=== PATIENT | male | born 1950 | race Caucasian/White ===

== ENCOUNTER 2025-01-20 15:43 | Emergency (ER) | payer OTHER ==
[~2025-01-20] VITALS: Ht 185.4 cm; Wt 72.6 kg
[2025-01-20] MEDS ORDERED: FLECAINIDE ACE100 MG PO (16:21)
[2025-01-20] MEDS ORDERED: KETOROLAC TROMETHAMINE 60 MG VIAL IM ONE (17:00)
[2025-01-20] MEDS ORDERED: KETOROLAC TROMETHAMINE 30 MG VIAL IM ONE (18:15)
[2025-01-20] MEDS ORDERED: MORPHINE SULFATE 2 MG/ML SYRINGE IV ONE (18:15)
[2025-01-20] MEDS ORDERED: KETOROLAC TROMETHAMINE 30 MG VIAL ONE (18:44)
[2025-01-20] MEDS ORDERED: PERCOCET 10-321 EACH PO (23:21)
[2025-01-20] MEDS ORDERED: TRAMADOL HCL 50 MG TABLET PO ONE (23:30)
== END 2025-01-21 00:24 | disposition home or self-care (01) ==
LOC: ER 15:44
DX: S42.212A Unspecified displaced fracture of surgical neck of left humerus, initial encounter for closed fracture (principal); W10.0XXA Fall (on)(from) escalator, initial encounter; Y93.89 Activity, other specified; Y92.89 Other specified places as the place of occurrence of the external cause; I49.8 Other specified cardiac arrhythmias; S79.812A Other specified injuries of left hip, initial encounter; S59.812A Other specified injuries left forearm, initial encounter; S42.392A Other fracture of shaft of left humerus, initial encounter for closed fracture
CPT/HCPCS: 71250; 72125; 73030; 73080; 73090; 73110; 73200; 73503; 74176; 96365; 96372; 99284; J1885; J2270

== ENCOUNTER 2025-01-24 07:02 | Outpatient (CLI) | payer OTHER ==
[~2025-01-24 07:02] MED LIST: FLECAINIDE ACE100 MG PO; PERCOCET 10-321 EACH PO
[2025-01-24 07:55] LABS: BASO % 0.3 % (0.1-1.2); EOS # 0.13 (0.04-0.54); EOS % 2.0 % (0.7-7.0); LYMPH # 0.56 (1.18-3.74); LYMPH % 8.5 % (19.3-53.1); MEAN PLATELET VOLUME 11.10 fl (9.4-12.4); MONO # 0.34 (0.24-0.82); MONO % 5.2 % (4.7-12.5); NEUT # 5.47 (1.56-6.13); NEUT % 83.5 % (34.0-71.1); RED CELL DISTRIBUTION WIDTH 14.5 % (11.6-14.4)
[2025-01-24 08:27] LABS: URINE APPEARANCE Clear; URINE BILIRRUBIN Small (NEGATIVE); URINE BLOOD Negative; URINE COLOR Dark Yellow; URINE GLUCOSE Negative (NEGATIVE); URINE KETONE Trace (NEGATIVE); URINE LEUKOCYTE Trace; URINE NITRATE Negative; URINE PROTEIN Trace (NEGATIVE); URINE UROBILINOGEN 1.0 E.U./dl
[2025-01-24 08:28] LABS: URINE BACTERIA 28.8 uL (0.0-1933); URINE EPITHELIAL CELLS 3.0 uL (0.0-38.8); URINE RBC 13.1 uL (0.0-20.8); URINE WBC 3.3 uL (0.0-23.2)
[2025-01-24 08:51] LABS: ALT/SGPT 29.0 U/L (12-78); AST/SGOT 21.0 U/L (15-37); BILIRUBIN TOTAL 0.67 mg/dL (0.3-1.2); BUN CREA RATIO 18.0 (7.0-25.0); CREATININE SERUM 0.82 mg/dL (0.70-1.30); GFR 91.84; GLOBULINA 2.8 G/DL (2.4-3.5); GLUCOSE FASTING 110.0 mg/dL (65-100); OSMOLALITY SERUM 283.0 MOSM/KG (275-295)
[2025-01-24 08:52] LABS: COL EPI 94 SECONDS (82-175)
[2025-01-24 08:58] LABS: INR 0.98
[2025-01-24 09:08] LABS: URINE CAST 0.14 uL (0.0-1.40)
[2025-01-24 09:10] LABS: URINE CRYSTALS MANY /HPF; URINE MUCUS HEAVY
== END 2025-01-24 07:10 | disposition home or self-care (01) ==
LOC: LAB 07:02 → RAD 07:02
PROVIDERS: ATTEND Orthopaedic Surgery
DX: D64.9 Anemia, unspecified (principal); E88.89 Other specified metabolic disorders; D68.8 Other specified coagulation defects; N39.0 Urinary tract infection, site not specified; Z22.322 Carrier or suspected carrier of Methicillin resistant Staphylococcus aureus; E11.9 Type 2 diabetes mellitus without complications; Z76.89 Persons encountering health services in other specified circumstances; I10 Essential (primary) hypertension

== ENCOUNTER 2025-01-28 08:34 | Outpatient (CLI) | payer OTHER ==
[2025-01-28 09:04] LABS: BASO % 0.5 % (0.1-1.2); EOS # 0.11 (0.04-0.54); EOS % 1.7 % (0.7-7.0); LYMPH # 0.69 (1.18-3.74); LYMPH % 10.8 % (19.3-53.1); MEAN PLATELET VOLUME 10.30 fl (9.4-12.4); MONO # 0.35 (0.24-0.82); MONO % 5.5 % (4.7-12.5); NEUT # 5.18 (1.56-6.13); NEUT % 80.9 % (34.0-71.1); RED CELL DISTRIBUTION WIDTH 14.3 % (11.6-14.4)
== END 2025-01-28 08:39 | disposition home or self-care (01) ==
LOC: LAB 08:34
PROVIDERS: ATTEND Internal Medicine
DX: D64.9 Anemia, unspecified (principal)

== ENCOUNTER 2025-01-31 22:07 | Inpatient (IN) | payer OTHER ==
[~2025-01-31] VITALS: Ht 185.4 cm; Wt 72.6 kg
[~2025-01-31 22:07] MED LIST changes: +ACETAMINOPHEN 325 MG TABLET PO SCH; +BUPIVACAINE HCL/MPF 0.5% 30ML VIAL ONE; +CEFAZOLIN SODIUM 1,000 MG VIAL ONE; +ONDANSETRON 4 MG TAB.RAPDIS PO PRN; +ONDANSETRON HCL 2 MG/ML VIAL IV PRN; +ONDANSETRON HCL 2 MG/ML VIAL ONE; +PROMETHAZINE HCL 50 MG/ML AMPUL IM PRN; +SODIUM CHLORIDE 0.45 % 1,000 ML IV SCH; +SUGAMMADEX SODIUM 200 MG/2 ML VIAL IV ONE; +TRAMADOL HCL 50 MG TABLET PO PRN; +TRANEXAMIC ACID 100MG/1ML (1000MG) AMPUL IV ONE
[2025-01-31 23:18] LABS: BASO % 0.1 % (0.1-1.2); EOS # 0.02 (0.04-0.54); EOS % 0.1 % (0.7-7.0); LYMPH # 0.41 (1.18-3.74); LYMPH % 2.4 % (19.3-53.1); MEAN PLATELET VOLUME 9.60 fl (9.4-12.4); MONO # 0.30 (0.24-0.82); MONO % 1.7 % (4.7-12.5); NEUT # 16.32 (1.56-6.13); NEUT % 95.2 % (34.0-71.1); RED CELL DISTRIBUTION WIDTH 14.5 % (11.6-14.4)
[2025-01-31] MEDS ORDERED: CEFAZOLIN SODIUM 1,000 MG VIAL ONE (23:44)
[2025-01-31] MEDS ORDERED: ACETAMINOPHEN 325 MG TABLET PO ONE (23:44)
[2025-02-01] MEDS ORDERED: CEFAZOLIN SODIUM 1,000 MG VIAL IV SCH (01:00)
[2025-02-01 01:05] LABS: LYMPHOCYTE MAN 5.0 %; MONOCYTE MAN 1.0 %; NEUTROPHILS MAN 94.0 %
[2025-02-01 01:30] VITALS: BP 145/68; O2SAT 97
[2025-02-01 08:48] VITALS: BP 153/73; O2SAT 98
[2025-02-01] MEDS ORDERED: PANTOPRAZOLE SODIUM 40 MG TABLET.DR PO SCH (09:00)
[2025-02-01] MEDS ORDERED: RIVAROXABAN 10 MG TAB PO SCH (09:00)
[2025-02-02] MEDS ORDERED: SENNA/DOCUSATE SODIUM 1 TAB TABLET PO SCH (09:00)
== END 2025-02-01 17:40 | disposition home or self-care (01) | DRG 493 ==
LOC: CIR.AMB 22:07 → SURG 22:16
PROVIDERS: ADMIT Orthopaedic Surgery; ATTEND Orthopaedic Surgery
PROC: 0PSD04Z Reposition Left Humeral Head with Internal Fixation Device, Open Approach (ICD-10-PCS; 2025-01-31)
PROC: 0LQ20ZZ Repair Left Shoulder Tendon, Open Approach (ICD-10-PCS; 2025-01-31)
PROC: 0LS40ZZ Reposition Left Upper Arm Tendon, Open Approach (ICD-10-PCS; 2025-01-31)
PROC: 0PBB0ZZ Excision of Left Clavicle, Open Approach (ICD-10-PCS; 2025-01-31)
PROC: 0PSD04Z Reposition Left Humeral Head with Internal Fixation Device, Open Approach (ICD-10-PCS; principal; 2025-01-31 08:15)
DX: S42.232A 3-part fracture of surgical neck of left humerus, initial encounter for closed fracture (principal); S42.392A Other fracture of shaft of left humerus, initial encounter for closed fracture; M75.102 Unspecified rotator cuff tear or rupture of left shoulder, not specified as traumatic

== ENCOUNTER 2025-02-10 07:19 | Outpatient (CLI) | payer OTHER ==
[~2025-02-10 07:19] MED LIST changes: -ACETAMINOPHEN 325 MG TABLET PO SCH; -BUPIVACAINE HCL/MPF 0.5% 30ML VIAL ONE; -CEFAZOLIN SODIUM 1,000 MG VIAL ONE; -ONDANSETRON 4 MG TAB.RAPDIS PO PRN; -ONDANSETRON HCL 2 MG/ML VIAL IV PRN; -ONDANSETRON HCL 2 MG/ML VIAL ONE; -PROMETHAZINE HCL 50 MG/ML AMPUL IM PRN; -SODIUM CHLORIDE 0.45 % 1,000 ML IV SCH; -SUGAMMADEX SODIUM 200 MG/2 ML VIAL IV ONE; -TRAMADOL HCL 50 MG TABLET PO PRN; -TRANEXAMIC ACID 100MG/1ML (1000MG) AMPUL IV ONE
== END 2025-02-10 07:23 | disposition home or self-care (01) ==
LOC: RAD 07:19
PROVIDERS: ATTEND Orthopaedic Surgery
DX: S52.572A Other intraarticular fracture of lower end of left radius, initial encounter for closed fracture (principal)

== ENCOUNTER 2025-02-10 12:30 | Inpatient (IN) | payer OTHER ==
[~2025-02-10] VITALS: Ht 185.4 cm; Wt 72.6 kg
[2025-02-10] MEDS ORDERED: CEFTRIAXONE SODIUM 2,000 MG VIAL IV STA (13:59)
[2025-02-10] MEDS ORDERED: ACETAMINOPHEN 500 MG GEL..CAP PO PRN (14:00)
[2025-02-10 14:13] VITALS: BP 146/81; O2SAT 99
[2025-02-10] MEDS ORDERED: ENALAPRILAT DIHYDRATE 2.5 MG/2 ML VIAL IV PRN (14:15)
[2025-02-10] MEDS ORDERED: ENALAPRILAT DIHYDRATE 1.25 MG/ML VIAL IV PRN (14:30)
[2025-02-10 15:53] LABS: BASO % 0.4 % (0.1-1.2); EOS # 0.11 (0.04-0.54); EOS % 1.4 % (0.7-7.0); LYMPH # 0.71 (1.18-3.74); LYMPH % 8.9 % (19.3-53.1); MEAN PLATELET VOLUME 9.50 fl (9.4-12.4); MONO # 0.29 (0.24-0.82); MONO % 3.6 % (4.7-12.5); NEUT # 6.77 (1.56-6.13); NEUT % 85.1 % (34.0-71.1); RED CELL DISTRIBUTION WIDTH 14.9 % (11.6-14.4)
[2025-02-10 16:00] VITALS: BP 146/87; O2SAT 99
[2025-02-10 16:09] LABS: ERYTHROCYTE SEDIMENTATION RATE 78 mm/hr (0-20)
[2025-02-10 16:14] LABS: INR 1.0
[2025-02-10 16:38] LABS: ALT/SGPT 24.0 U/L (12-78); AST/SGOT 18.0 U/L (15-37); BILIRUBIN TOTAL 0.68 mg/dL (0.3-1.2); BUN CREA RATIO 20.0 (7.0-25.0); CREATININE SERUM 0.82 mg/dL (0.70-1.30); GFR 91.84; GLOBULINA 3.8 G/DL (2.4-3.5); GLUCOSE FASTING 91.0 mg/dL (65-100); OSMOLALITY SERUM 282.0 MOSM/KG (275-295)
[2025-02-10] MEDS ORDERED: FF) FLECAINIDE ACETATE 50MG TAB PO SCH (17:03)
[2025-02-10] MEDS ORDERED: FAMOTIDINE/PF 20 MG/2 ML VIAL IV PUSH SCH (21:00)
[2025-02-11] VITALS: BP 163/74; O2SAT 100
[2025-02-11 08:07] VITALS: BP 116/79; O2SAT 97
[2025-02-11] MEDS ORDERED: CEFTRIAXONE SODIUM 2,000 MG VIAL IV SCH ×2 (09:00)
[2025-02-11] MEDS ORDERED: ENOXAPARIN SODIUM 40 MG/0.4 ML SYRINGE SUBCUTANEO SCH (09:00)
[2025-02-11 16:36] VITALS: BP 137/78; O2SAT 99
[2025-02-11] MEDS ORDERED: LACTOBACILLUS ACIDOPHILUS 1 CAP CAP PO SCH (17:00)
[2025-02-12 00:16] VITALS: BP 169/83; O2SAT 100
[2025-02-12 03:03] VITALS: BP 140/82; O2SAT 97
[2025-02-12 09:15] VITALS: BP 166/75; O2SAT 99
[2025-02-12 19:35] VITALS: BP 148/69; O2SAT 97
[2025-02-13 00:15] VITALS: BP 178/84; O2SAT 99
[2025-02-13 03:43] VITALS: BP 154/77
[2025-02-13 08:24] VITALS: BP 120/79; O2SAT 99
[2025-02-13 16:15] VITALS: BP 116/69; O2SAT 100
[2025-02-14 00:52] VITALS: BP 161/83; O2SAT 99
[2025-02-14 16:48] VITALS: BP 141/76; O2SAT 99
== END 2025-02-14 17:51 | disposition home or self-care (01) | DRG 921 ==
LOC: SURG 12:30
PROVIDERS: ADMIT Internal Medicine; ATTEND Internal Medicine
DX: L76.32 Postprocedural hematoma of skin and subcutaneous tissue following other procedure (principal); B96.0 Mycoplasma pneumoniae [M. pneumoniae] as the cause of diseases classified elsewhere; I10 Essential (primary) hypertension

== ENCOUNTER 2025-02-24 12:45 | Outpatient (CLI) | payer OTHER | END 2025-02-24 12:53 | disposition home or self-care (01) | LOC: RAD 12:45 | PROVIDERS: ATTEND Orthopaedic Surgery | DX: S42.232D 3-part fracture of surgical neck of left humerus, subsequent encounter for fracture with routine healing (principal); M25.522 Pain in left elbow; M79.632 Pain in left forearm; S52.572D Other intraarticular fracture of lower end of left radius, subsequent encounter for closed fracture with routine healing ==

== ENCOUNTER 2025-03-17 07:26 | Outpatient (CLI) | payer OTHER | END 2025-03-17 07:27 | disposition home or self-care (01) | LOC: RAD 07:26 | PROVIDERS: ATTEND Orthopaedic Surgery | DX: S42.232D 3-part fracture of surgical neck of left humerus, subsequent encounter for fracture with routine healing (principal) ==